=== PATIENT | male | born 1960 | race Caucasian/White ===

== ENCOUNTER 2017-12-07 22:47 | Emergency (ER) | payer SELFPAY ==
[~2017-12-07] VITALS: Ht 177.8 cm; Wt 67.0 kg
[~2017-12-07 22:47] MED LIST: IBUP800T23 PO
[2017-12-07 22:49] VITALS: BP 151/70; PULSE 97; RESP 20; TEMP 97.4; O2SAT 100
--- NOTE | 2017-12-07 23:35 | PD ---
Physical Exam Date Seen by Provider: December 07, 2017 Time Seen by Provider: 23:34 Narrative For full history and physical examination please see previous providers note. I was asked to perform an I&D to patient's right forearm abscess. Data Data Last Documented VS Vital Signs Date Time Temp Pulse Resp B/P (MAP) Pulse Ox O2 Delivery O2 Flow Rate FiO2 12/07/17 22:49 97.4 97 20 151/70 (97) 100 MDM Medical Record Reviewed: Yes Supervised Visit with KASHIF: Yes Procedures Procedure Narrative After the risks and benefits were discussed the following procedure was performed: INCISION AND DRAINAGE OF ABSCESS: The area was prepped and was sterilely draped. A subcutaneous wheal of 1 % Xylocaine with a total number 2 mL was used to anesthetize the area. The area was properly anesthetized. A number 11 scalpel was used to make a 1 -cm incision across the area of the abscess. Cultures were obtained. The abscess was drained an irrigated with normal saline. Quarter inch iodoform packing was placed in the wound. Sterile dressing applied. Patient advised to have packing removed in two days. Scripts No Active Prescriptions or Reported Livia Maldonado December 07, 2017 23:35
[2017-12-08] MEDS ORDERED: CLIN150C14 PO (00:22)
--- NOTE | 2017-12-08 00:23 | PD ---
HPI Chief Complaint: Skin Problem Time Seen by Provider: 00:20 Travel History International Travel<30 days: No Contact w/Intl Traveler<30days: No Traveled to known affect area: No History of Present Illness HPI 57-year-old male presents to the emergency department for complaint of swelling and redness to the right forearm. Patient admits to injecting IV cocaine. Patient is a no fever chills nausea vomiting ascending erythema or axillary lymphadenopathy. Patient is not diabetic. Patient is unable to identify exacerbating or alleviating factors. Patient has taken no medications for symptom relief such as ibuprofen or acetaminophen. Patient did take leftover amoxicillin given to him by a friend. PFSH Past Medical History AAA: No ADD: No ADHD: No Asthma: No Atrial Fibrillation: No Autoimmune Disease: No Blood Disorders: No Bipolar Disorder: No Depression: No Heart Rhythm Problems: No Cardiomyopathy: No Cardiovascular Problems: No Cerebral Palsy: No High Cholesterol: No Chemotherapy: No Chest Pain: No Congestive Heart Failure: No Cirrhosis: No COPD: No Cerebrovascular Accident: No Coronary Artery Disease: No Cystic Fibrosis: No Dementia: No Developmental Delay: No Diabetes: No Dialysis: No Diminished Hearing: No Diverticulitis: No Endocrine: No Gastrointestinal Disorders: No Genetic Disorder: No GERD: No Genitourinary: No Headaches: No Hepatitis: No Hypertension: No Immune Disorder: No Musculoskeletal: No Neurologic: No Psychiatric: Yes Reproductive: No Pancreatitis: No Radiation Therapy: No Renal Failure: No Schizophrenia: No Seizures: No Sickle Cell Disease: No Thyroid Disease: No Ulcer: No Tetanus Vaccination: < 5 Years Influenza Vaccination: No Past Surgical History Abdominal Surgery: No AICD: No Cardiac Surgery: No Ear Surgery: No Endocrine Surgery: No Eye Surgery: No Genitourinary Surgery: No Insulin Pump: No Neurologic Surgery: No Oral Surgery: No Thoracic Surgery: No Family History Family Hypercholesterolemia: No Social History Alcohol Use: Yes (5 liq drinks today) Tobacco Use: Yes (1ppd) Substance Use: No Allergies-Medications (Allergen,Severity, Reaction): Coded Allergies: No Known Allergies (Unverified Adverse Reaction, Unknown, 12/07/17) Reported Meds & Prescriptions Reported Meds & Active Scripts Active Clindamycin (Clindamycin HCl) 150 Mg Cap 300 Mg PO Q6H 7 Days Review of Systems Except as stated in HPI: all other systems reviewed are Neg General / Constitutional: No: Fever, Chills HENT: No: Congestion Cardiovascular: No: Chest Pain or Discomfort, Palpitations, Syncope Respiratory: No: Shortness of Breath Gastrointestinal: No: Abdominal Pain Genitourinary: No: Flank Pain Musculoskeletal: Positive: Edema, Pain (Isolated right forearm pain with redness swelling and tenderness no back pain no lower extremity numbness tingling or weakness or cramping), No: Myalgias, Arthralgias, Weakness, Cramping Skin: Positive Rash (Proximal right forearm proximal right forearm), Positive Lumps Neurologic: No: Weakness (Proximal right forearm), Dizziness, Syncope Psychiatric: No: Anxiety Hematologic/Lymphatic: No: Lymph Node Enlargement Physical Exam Narrative GENERAL: Well-developed well-nourished male no acute distress no respiratory SKIN: Warm and dry. HEAD: Normocephalic. EYES: No scleral icterus. No injection or drainage. NECK: Supple, trachea midline. No JVD or lymphadenopathy. CARDIOVASCULAR: Regular rate and rhythm without murmurs, gallops, or rubs. No murmur RESPIRATORY: Breath sounds equal bilaterally. No accessory muscle use. GASTROINTESTINAL: Abdomen soft, non-tender, nondistended. MUSCULOSKELETAL: No cyanosis, or edema. Attention right upper extremity area of marked induration erythema tenderness warmth with central pointing to the volar aspect of the proximal right forearm distal extremities neurovascular tendon intact proximally there is no ascending erythema or palpable axillary lymphadenopathy BACK: Nontender without obvious deformity. No CVA tenderness. Data Data Last Documented VS Vital Signs Date Time Temp Pulse Resp B/P (MAP) Pulse Ox O2 Delivery O2 Flow Rate FiO2 12/07/17 22:49 97.4 97 20 151/70 (97) 100 Orders Orders Wound Culture And Gram Stain (12/07/17 23:35) Ed Discharge Order (12/08/17 00:23) Clindamycin (Cleocin) (12/08/17 00:30) MDM Medical Decision Making Medical Screen Exam Complete: Yes Emergency Medical Condition: Yes Medical Record Reviewed: Yes Differential Diagnosis Abscess cellulitis retained foreign body Narrative Course Patient with abscess of the forearm secondary to IV drug use; I&D to be performed Please refer to mid-level provider's dictation Patient given first dose of clindamycin Patient is stable for outpatient management Diagnosis Primary Impression: Abscess of right forearm Additional Impression: Encounter for incision and drainage procedure Referrals: Primary Care Physician 2 days Patient Instructions: General Instructions Additional Instructions: Follow-up with primary care provider or emergency department for 2 day wound check and packing removal Complete course of antibiotic as prescribed Return to the emergency department for any concerns or change in condition Take acetaminophen or ibuprofen per package directions for pain or for fever 100.4F or greater Discontinue cocaine use May apply warm compresses to affected area Med/Other Pt SpecificInfo: Prescription(s) given Scripts Clindamycin (Clindamycin) 150 Mg Cap 300 MG PO Q6H for Infection for 7 Days, #56 CAP 0 Refills Prov: Indira Marie MD 12/08/17 Disposition: 01 DISCHARGE HOME Condition: Stable Indira Marie MD December 08, 2017 00:23
[2017-12-08] MEDS ORDERED: CLINDAMYCIN 150 MG CAP PO ONE (00:30)
== END 2017-12-08 00:30 | disposition home or self-care (01) ==
LOC: NEPC 22:47
DX: L02.413 Cutaneous abscess of right upper limb (principal); F17.200 Nicotine dependence, unspecified, uncomplicated
CPT/HCPCS: 10061; 86403; 87070; 87186; 87205

== ENCOUNTER 2017-12-11 13:05 | Emergency (ER) | payer SELFPAY ==
[~2017-12-11] VITALS: Ht 182.9 cm; Wt 69.0 kg
[~2017-12-11 13:05] MED LIST changes: +CLIN150C14 PO; -IBUP800T23 PO
[2017-12-11 13:18] VITALS: BP 133/75; PULSE 82; RESP 16; TEMP 97.9; O2SAT 98
[2017-12-11] MEDS ORDERED: DICL75TA PO (13:49)
[2017-12-11] MEDS ORDERED: BACT800T5 PO (13:49)
[2017-12-11] MEDS ORDERED: CEPH-460 PO (13:49)
[2017-12-11] MEDS ORDERED: VANCOMYCIN INJ 1,000 MG in SODIUM CHLOR 0.9% 250 ML INJ 250 ML IV ONE (14:00)
--- NOTE | 2017-12-11 14:09 | PD ---
HPI Chief Complaint: Wound/Suture/Staple Re-Check Time Seen by Provider: 13:40 Travel History International Travel<30 days: No Contact w/Intl Traveler<30days: No Traveled to known affect area: No History of Present Illness HPI 57-year-old male that presents to the ED for evaluation of wound recheck. Patient had an abscess incised and drained here earlier this week. Per patient he was given clindamycin while he could not afford the medication because he was too expensive. He comes here for a recheck. Comes here with a friend who was able to transport him as apparently patient does not have any transportation. He does have a history of IV drug abuse and apparently injected cocaine were he had the abscess. For the most part he states that he is here for the packing removal and for antibiotics. Per patient he cannot afford them. He states that he has some discomfort on the area which is 3 out of 10. He denies any fevers chills or sweats. He has not changed the dressing since being here. No other medical issues. Allergy to under peroxide. Pain does not radiate. Denies any urinary or bowel movement issues. No other injuries. PFSH Past Medical History AAA: No ADD: No ADHD: No Asthma: No Atrial Fibrillation: No Autoimmune Disease: No Blood Disorders: No Bipolar Disorder: No Depression: No Heart Rhythm Problems: No Cardiomyopathy: No Cardiovascular Problems: No Cerebral Palsy: No High Cholesterol: No Chemotherapy: No Chest Pain: No Congestive Heart Failure: No Cirrhosis: No COPD: No Cerebrovascular Accident: No Coronary Artery Disease: No Cystic Fibrosis: No Dementia: No Developmental Delay: No Diabetes: No Dialysis: No Diminished Hearing: No Diverticulitis: No Endocrine: No Gastrointestinal Disorders: No Genetic Disorder: No GERD: No Genitourinary: No Headaches: No Hepatitis: No Hypertension: No Immune Disorder: No Musculoskeletal: No Neurologic: No Psychiatric: Yes Reproductive: No Pancreatitis: No Radiation Therapy: No Renal Failure: No Schizophrenia: No Seizures: No Sickle Cell Disease: No Thyroid Disease: No Ulcer: No Tetanus Vaccination: < 5 Years Influenza Vaccination: No Past Surgical History Abdominal Surgery: No AICD: No Cardiac Surgery: No Ear Surgery: No Endocrine Surgery: No Eye Surgery: No Genitourinary Surgery: No Insulin Pump: No Neurologic Surgery: No Oral Surgery: No Thoracic Surgery: No Family History Family Hypercholesterolemia: No Social History Alcohol Use: Yes (5 liq drinks today) Tobacco Use: Yes (1ppd) Substance Use: No Allergies-Medications (Allergen,Severity, Reaction): Coded Allergies: hydrogen peroxide (Verified Allergy, Mild, hives, 12/11/17) Reported Meds & Prescriptions Reported Meds & Active Scripts Active Diclofenac Sodium DR (Diclofenac Sodium) 75 Mg Tabdr 75 Mg PO BID PRN Keflex (Cephalexin) 500 Mg Cap 500 Mg PO Q8H 14 Days Bactrim DS (Sulfamethoxazole-Trimethoprim) 800-160 Mg Tab 1 Tab PO BID 14 Days Clindamycin (Clindamycin HCl) 150 Mg Cap 300 Mg PO Q6H 7 Days Review of Systems Except as stated in HPI: all other systems reviewed are Neg Physical Exam Narrative GENERAL: SKIN: Warm and dry. Patient has a healing abscess that is still draining some purulence on the right elbow area. Patient has what appears to be sterile pain riding on his skin that appears to the node where he had redness and this appears to have improved. No packing noted as packing was removed by ED nurse before I went into the room. No obvious lymphadenopathy. No other signs of acute disease. Patient able to move the arm fully. 2+ pulses bilaterally. Redness only to the area where the abscess was lanced and slightly warm to touch. HEAD: Atraumatic. Normocephalic. EYES: Pupils equal and round. No scleral icterus. No injection or drainage. ENT: No nasal bleeding or discharge. Mucous membranes pink and moist. Tongue is midline. No uvula deviation. NECK: Trachea midline. No JVD. CARDIOVASCULAR: Regular rate and rhythm. No murmurs, S3, S4. RESPIRATORY: No accessory muscle use. Clear to auscultation. Breath sounds equal bilaterally. GASTROINTESTINAL: Abdomen soft, non-tender, nondistended. Hepatic and splenic margins not palpable. MUSCULOSKELETAL: Extremities without clubbing, cyanosis, or edema. No obvious deformities. Full range of motion of the upper and lower extremities bilaterally. 2+ pulses bilaterally. NEUROLOGICAL: Awake and alert. No obvious cranial nerve deficits. Motor grossly within normal limits. Five out of 5 muscle strength in the arms and legs. Normal speech. PSYCHIATRIC: Appropriate mood and affect; insight and judgment normal. Data Data Last Documented VS Vital Signs Date Time Temp Pulse Resp B/P (MAP) Pulse Ox O2 Delivery O2 Flow Rate FiO2 5/31/18 13:31 76 16 12/11/17 13:18 97.9 133/75 (94) 98 Orders Orders Vancomycin Inj (Vancomycin Inj) (12/11/17 14:00) [facility] Medical Decision Making Medical Screen Exam Complete: Yes Emergency Medical Condition: Yes Medical Record Reviewed: Yes Differential Diagnosis Abscess versus cellulitis versus wound recheck Narrative Course 57-year-old male that presents to the ED for evaluation of abscess recheck. Patient was properly examined and was found to have signs and symptoms consistent with wound recheck. I did review the patient's medical record. Patient was here 4 days ago and apparently has not taken antibiotics but the wound itself appears to be better. He still has drainage from the abscess. He did grow MRSA which apparently is resistant to the clindamycin that he was prescribed so this wouldn't have helped anyways. At this time patient will be given an IV dose of vancomycin and given a prescription for Bactrim. Patient was given Diclofenac sodium for pain. Told to follow closely with PCP. See ED if worsening symptoms. Packing already had been removed by ED nurse before I went in the room when she was changing the dressing. Diagnosis Primary Impression: Abscess Patient Instructions: General Instructions Additional Instructions: Take medications as prescribed. Follow-up with PCP. See ED if worsening symptoms. Bactrim is free at [facility]. Rechecking 48 hours if no improvement at all. Med/Other Pt SpecificInfo: Prescription(s) given, Wound Care Scripts Diclofenac Sodium DR (Diclofenac Sodium DR) 75 Mg Tabdr 75 MG PO BID Y for PAIN SCALE 1 TO 10, #20 TAB 0 Refills Prov: Zach Briceño MD 12/11/17 Cephalexin (Keflex) 500 Mg Cap 500 MG PO Q8H for Infection for 14 Days, #42 CAP 0 Refills Prov: Zach Briceño MD 12/11/17 Sulfamethoxazole-Trimethoprim (Bactrim DS) 800-160 Mg Tab 1 TAB PO BID for Infection for 14 Days, #28 TAB 0 Refills Prov: Zach Briceño MD 12/11/17 Disposition: 01 DISCHARGE HOME Condition: Stable Wilmer Key December 11, 2017 14:08
[2017-12-11 15:25] VITALS: BP 124/77; TEMP 97.9
== END 2017-12-11 15:25 | disposition home or self-care (01) ==
LOC: NEPC 13:05
DX: L02.413 Cutaneous abscess of right upper limb (principal); F17.200 Nicotine dependence, unspecified, uncomplicated
CPT/HCPCS: 96365; 99284; J3370; J7050

== ENCOUNTER 2018-02-13 11:17 | Observation (INO) ==
--- NOTE | 2018-02-13 14:00 | ED ---
HPI General Chief Complaint: Respiratory Symptoms Stated Complaint: respiratory Time Seen by Provider: 02/13/18 13:27 History of Present Illness HPI Narrative: This patient complains of cough and congestion and wheezing and shortness of breath. Patient is a lifelong cigarette smoker who is homeless. He has been coughing up some phlegm. He denies fever or chest pain. He has no diagnosed cardiac or pulmonary disease. Symptom severity is moderate. No alleviating factors. No exacerbating factors. Duration is 3 days Related Data Home Medications Medication Instructions Recorded Confirmed No Known Home Medications 02/13/18 02/13/18 Allergies Allergy/AdvReac Type Severity Reaction Status Date / Time hydrogen peroxide Allergy Mild hives Verified 02/13/18 13:33 Review of Systems Except as stated in HPI: all other systems reviewed are negative [facility] Medical History Medical History Broken legs (Acute) Dislocated thumb (Acute) Social History Social History Substance History: Past History Second Hand Smoke Exposure: Yes Smoking Status: Current every day smoker Tobacco Type: Cigarettes How Often Do You Have a Drink Containing Alcohol: 2 to 3 times a week Recent Travel in [facility] within the Last 8 Weeks: No Recent Out of Country Travel within the Last 8 Weeks: No Immunization History Tetanus Immunization: Unsure Hx Influenza Vaccine This Season: No Exam Narrative Exam Narrative: GENERAL: Well-nourished, well-developed patient cough and congestion . SKIN: Focused skin assessment reveals no rash and nodules. Skin is Warm and dry. HEAD: Atraumatic. Normocephalic. EYES: Pupils equal and round. No scleral icterus. No injection or drainage. ENT: No nasal bleeding or discharge. Mucous membranes pink and moist. NECK: Trachea midline. No JVD. CARDIOVASCULAR: Regular rate and rhythm. No murmur appreciated. RESPIRATORY: No accessory muscle use. Some expiratory wheeze and diffuse rhonchi. Breath sounds equal bilaterally. GASTROINTESTINAL: Abdomen soft, non-tender, nondistended. Hepatic and splenic margins not palpable. MUSCULOSKELETAL: No obvious deformities. No clubbing. No cyanosis. No edema. NEUROLOGICAL: Awake and alert. No obvious cranial nerve deficits. Motor grossly within normal limits. Normal speech. PSYCHIATRIC: Appropriate mood and affect; insight and judgment poor. Course Initial Documented Vital Signs Temperature 98.3 F 02/13/18 11:19 Pulse Rate 115 H 02/13/18 11:19 Respiratory Rate 20 02/13/18 11:19 Blood Pressure 116/73 02/13/18 11:19 Pulse Oximetry 94 L 02/13/18 11:19 Last Documented Vital Signs Temperature 98.3 F 02/13/18 11:19 Pulse Rate 114 H 02/13/18 15:24 Respiratory Rate 22 02/13/18 15:24 Blood Pressure 123/80 02/13/18 15:24 Pulse Oximetry 95 02/13/18 15:24 Medical Decision Making MDM Narrative Medical decision making narrative: IV placed and labs sent. I gave him a series of 3 nebulizer treatments. I reviewed his EKG which shows sinus rhythm and no ST elevation I reviewed his chest x-ray which shows a sizable right lung consolidation consistent with pneumonia. It matches his dyspnea and cough. He is tachycardic and tachypneic. He would benefit from IV antibiotics and hospitalization. He is homeless and not like to antibiotics filled or medical care follow-up. He will be admitted for community acquired pneumonia. Call is been placed to the medical residents to discuss. Differential Diagnosis Differential Diagnosis: Pneumonia, bronchitis, URI, asthma, COPD Medical Records Medical records reviewed: Yes I reviewed the patient's medical records. Lab Data Lab results reviewed: Yes I reviewed the patient's lab results. Result diagrams: 02/13/18 14:03 02/13/18 14:03 Lab Results 02/13/18 02/13/18 02/13/18 Range/Units 14:03 14:03 14:03 WBC 10.0 (4.0-11.0) th/mm3 RBC 5.32 (4.50-5.90) mil/mm3 Hgb 15.8 (13.0-17.0) gm/dL Hct 47.9 (39.0-51.0) % MCV 89.9 (80.0-100.0) fL MCH 29.7 (27.0-34.0) pg MCHC 33.0 (32.0-36.0) % RDW 15.0 (11.6-17.2) % Plt Count 343 (150-450) th/mm3 MPV 7.0 (7.0-11.0) fL Neut % (Auto) 75.9 H (16.0-70.0) % Lymph % (Auto) 10.3 (9.0-44.0) % [place] % (Auto) 11.9 H (0.0-8.0) % Eos % (Auto) 1.0 (0.0-4.0) % Baso % (Auto) 0.9 (0.0-2.0) % Neut # (Auto) 7.6 (1.8-7.7) th/mm3 Lymph # (Auto) 1.0 (1.0-4.8) th/mm3 [place] # (Auto) 1.2 H (0.0-0.9) th/mm3 Eos # (Auto) 0.1 (0.0-0.4) th/mm3 Baso # (Auto) 0.1 (0.0-0.2) th/mm3 WBC Differential . Differential Comment Auto diff final Sodium 132 L (136-145) meq/L Potassium 3.8 (3.5-5.1) meq/L Chloride 97 L (98-107) meq/L Carbon Dioxide 27.7 (21.0-32.0) meq/L Anion Gap 7 (5-15) meq/L BUN 6 L (7-18) mg/dL Creatinine 1.01 (0.60-1.30) mg/dL Estimated GFR 76 L (>89) mL/min Random Glucose 69 L (74-106) mg/dL Calcium 8.5 (8.5-10.1) mg/dL Total Bilirubin 1.3 H (0.2-1.0) mg/dL AST 18 (15-37) U/L ALT 16 (12-78) U/L Alkaline Phosphatase 93 (45-117) U/L Troponin I Less than 0.02 L (0.02-0.05) ng/mL Total Protein 7.4 (6.4-8.2) g/dL Albumin 3.0 L (3.4-5.0) g/dL Imaging Data Radiologist's impression: Chest X-Ray 02/13/18 13:53 CONCLUSION: Densely consolidated area of infiltrate involving the right upper lobe. This would be concerning for a pneumonia. There are no previous examinations available for comparison. Discharge Plan Discharge Disposition Patient Disposition: 30 Still Patient Discharge Details Diagnosis: Community acquired pneumonia Physicians Team ED Provider: Aric Stoll Primary Care Provider: Primary Care Physici,Samantha Rxs /Orders / Referrals /Forms Prescriptions: No Action No Known Home Medications RF: 0 Discharge Interventions Interventions: Vital Signs Last Done: 02/13/18 15:24 Status ED Status: With Doctor
--- NOTE | 2018-02-13 14:17 | XR ---
EXAM DATE: 02/13/2018 2:06 PM EDT AGE/SEX: 58 years / Male INDICATIONS: Short of breath. CLINICAL DATA: This is the patient's initial encounter. Patient reports that signs and symptoms have been present for 3 days and indicates a pain score of 6/10. MEDICAL/SURGICAL HISTORY: . smokes None. COMPARISON: No prior exams available for comparison. FINDINGS: The heart is normal in size. The examination demonstrates a densely consolidated infiltrate involving the right upper lobe concerning for a pneumonia. The visualized bony structures are grossly intact. CONCLUSION: Densely consolidated area of infiltrate involving the right upper lobe. This would be concerning for a pneumonia. There are no previous examinations available for comparison. Electronically signed by: Christiano Tmolinson MD 02/13/2018 2:16 PM EDT
[2018-02-13 14:40] LABS: Baso # (Auto) 0.1 th/mm3 (0.0-0.2); Baso % (Auto) 0.9 % (0.0-2.0); Eos # (Auto) 0.1 th/mm3 (0.0-0.4); Hematocrit 47.9 % (39.0-51.0); Hemoglobin 15.8 gm/dL (13.0-17.0); Lymph % (Auto) 10.3 % (9.0-44.0); Mean Corpuscular Hemoglobin 29.7 pg (27.0-34.0); Mean Corpuscular Volume 89.9 fL (80.0-100.0); Mono # (Auto) 1.2 th/mm3 (0.0-0.9); Mono % (Auto) 11.9 % (0.0-8.0); Neut # (Auto) 7.6 th/mm3 (1.8-7.7); Neut % (Auto) 75.9 % (16.0-70.0); Platelet Count 343 th/mm3 (150-450); Red Blood Count 5.32 mil/mm3 (4.50-5.90)
[2018-02-13 14:56] LABS: Alanine Aminotransferase 16 U/L (12-78); Anion Gap 7 meq/L (5-15); Aspartate Aminotransferase 18 U/L (15-37); Blood Urea Nitrogen 6 mg/dL (7-18); Calcium 8.5 mg/dL (8.5-10.1); Carbon Dioxide 27.7 meq/L (21.0-32.0); Chloride 97 meq/L (98-107); Glomerular Filtration Rate 76 mL/min (>89); Glucose,Random 69 mg/dL (74-106); Potassium 3.8 meq/L (3.5-5.1); Sodium 132 meq/L (136-145)
[2018-02-13 14:58] LABS: Alkaline Phosphatase 93 U/L (45-117); Total Protein 7.4 g/dL (6.4-8.2)
[2018-02-13] MEDS ORDERED: Azithromycin Inj 500 MG in Sodium Chlor 0.9% Inj 250 ML IV.SIG ONE (17:04)
--- NOTE | 2018-02-13 17:52 | P.HPFP ---
History of Present Illness Primary Care Physician: No Primary Care Physician <Dominic Montero 02/14/18 20:08> No Primary Care Physician <Suze Hernandez 02/13/18 17:52> History of Present Illness: 58 year old male presents to the ED due to SOB that started 2 and a 1/2 days ago with associated R sided chest pain. PT was going to the library and suddenly felt SOB after walking for a long period of time. This seemed to happened in the past with walking very long distances but he has noticed that the shortness of breath has become worse in the past two days. The shortness of breath is now present at rest. He also has associated right- sided chest pain. Describes the pain as an achy stabbing pain with no radiation. Nothing seems to make the chest pain and shortness of breath better. Patient also has an associated cough that started today, nonproductive. Denies any fever but had associated chills over the past two days. No exposure to sick contacts. He also has had associated diarrhea since last night x5. Denies any blood in his stool. Denies any recent falls or trauma. SH: Patient lives in a car. No exposure to tuberculosis but has a friend who had MRSA infection. No exposure to people in long term, never been incarcerated. Sexually active with females, uses condoms. No Hx of STDs in the past. <Suze Hernandez 02/13/18 23:17> - Diagnosis (1) Sepsis (2) Community acquired pneumonia (3) Right-sided chest pain (4) Smoking (5) Nutrition, metabolism, and development symptoms (6) DVT prophylaxis <Dominic Montero 02/14/18 20:08> (1) Sepsis (2) Community acquired pneumonia (3) Right-sided chest pain (4) Nutrition, metabolism, and development symptoms (5) DVT prophylaxis <Suze Hernandez 02/13/18 23:17> Review of Systems Constitutional: Reports chills, Reports lack of energy, Denies fever(s), Denies headache(s) <Suze Hernandez 02/13/18 18:07> Eyes: Denies blurry vision <Suze Hernandez 02/13/18 18:07> Cardiovascular: Reports chest pain, Reports shortness of breath, Denies chest pain at rest, Denies fast heart rate, Denies rapid, pounding, or irregular heartbeat <Suze Hernandez 02/13/18 18:07> Comments: R sided, hurts with movement. SOB at rest <Suze Hernandez 02/13/18 18:07> Respiratory: Reports cough, Reports pain with cough, Reports shortness of breath with activity <Suze Hernandez 02/13/18 18:07> Comments: R sided chest <Suez Hernandez 02/13/18 18:07> Gastrointestinal: Reports change in stools, Denies abdominal pain, Denies black , tarry stools, Denies bright, red blood in stools <Suze Hernandez 02/13/18 18:07> Comments: diarrhea x5 yesterdya. No BM today. <Suze Hernandez 02/13/18 18:07> Psychiatric: Reports anxiety, Reports depression, Denies thoughts of hurting/ killing others, Denies thoughts of hurting/killing yourself <Suze Hernandez 02/13/18 18:07> PMFSH - History History Provided By: Patient <Suze Hernandez 02/13/18 17:52> - Medical History Medical History: Medical History (Last Updated 02/13/18 @ 11:23 by Lety Hogan) Broken legs Dislocated thumb <Dominic Montero 02/14/18 19:56> Medical History (Last Updated 02/13/18 @ 11:23 by Lety Hogan) Broken legs Dislocated thumb <Suze Hernandez 02/13/18 17:52> - Family History Family History: Family History (Last Updated 02/13/18 @ 18:10 by Suze Hernandez MD, R1) Mother COPD (chronic obstructive pulmonary disease) Myocardial disease Brother Diabetes Grandparent Myocardial disease <Dominic Montero 02/14/18 19:56> Family History (Last Updated 02/13/18 @ 18:10 by Suze Hernandez MD, R1) Mother COPD (chronic obstructive pulmonary disease) Myocardial disease Brother Diabetes Grandparent Myocardial disease <Suze Hernandez 02/13/18 18:12> - Tobacco History Second Hand Smoke Exposure: Yes <Suze Hernandez 02/13/18 17:52> Tobacco Use In Past 30 Days: Yes <Suze Hernandez 02/13/18 17:52> Smoking Status: Current every day smoker <Suze Hernandez 02/13/18 17:52> Tobacco Type: Cigarettes <Suze Hernandez 02/13/18 17:52> Packs Per Day: 1 <Suze Hernandez 02/13/18 18:12> Years Smoked: 30 <Suze Hernandez 02/13/18 18:12> - Alcohol History How Often Do You Have a Drink Containing Alcohol: 2 to 3 times a week <Suze Hernandez 02/13/18 17:52> - Substance Use History Substance History: Past History (marijuana, acid (30 years ago) crack ( 9 months ago), meth (8 months ago)) <Suze Hernandez 02/13/18 18:12> - Travel History Recent Travel in the [facility] Within the Last 8 Weeks: No <Suze Hernandez 17:52> Recent Travel Out of the Country Within the Last 8 Weeks: No <Suze Hernandez 02/13/18 17:52> - Immunization History Tetanus Immunization: <5 Years <Suze Hernandez 02/13/18 18:12> Tetanus Immunization Year if Known: 2015 <Suze Hernandez 02/13/18 18:12> Hx Influenza Vaccine This Season: No <Suze Hernandez 02/13/18 17:52> Medications and Allergies Allergies Allergy/AdvReac Type Severity Reaction Status Date / Time hydrogen peroxide Allergy Mild hives Verified 02/13/18 13:33 <Dominic Montero - 02/14/18 20:08> Home Medications Medication Instructions Recorded Confirmed Type No Known Home Medications 02/13/18 02/13/18 History <Dominic Montero 02/14/18 20:08> Active Medications: Active Medications Acetaminophen (Tylenol) 650 mg PO Q4H PRN PRN Reason: Temp > 100.4 Al Hydroxide/Mg Hydroxide (Milk Of Magnesia Liq) 30 ml PO Q12H PRN PRN Reason: Mild Constipation Albuterol (Duoneb Neb (Prn)) 1 ampul NEB Q4HR NEB PRN PRN Reason: SHORTNESS OF BREATH Bisacodyl (Dulcolax Supp) 10 mg RECTAL DAILY PRN PRN Reason: SEVERE CONSITIPATION Azithromycin 500 mg/ Sodium (Chloride) 250 mls @ 250 mls/hr IV.SIG Q24H [facility] Last Infusion: 02/14/18 17:50 Dose: Infused Ceftriaxone Sodium 1,000 mg/ (Sodium Chloride) 100 mls @ 200 mls/hr IV.SIG Q24H [facility] Last Infusion: 02/14/18 17:49 Dose: Infused Lactulose (Lactulose Liq) 30 ml PO DAILY PRN PRN Reason: SEVERE CONSITIPATION Ondansetron HCl (Zofran Inj) 4 mg IV.PUSH Q6H PRN PRN Reason: NAUSEA OR VOMITING Prednisone (Deltasone) 50 mg PO DAILY [facility] Last Admin: 02/14/18 11:34 Dose: 50 mg Sennosides (Senokot) 17.2 mg PO Q12H PRN PRN Reason: Moderate Constipation Temazepam (Restoril) 15 mg PO HS PRN PRN Reason: INSOMNIA <Dominic Montero - 02/14/18 20:08> Active Medications Azithromycin 500 mg/ Sodium (Chloride) 250 mls @ 250 mls/hr IV.SIG ONCE ONE Stop: 02/13/18 18:03 <Suze Hernandez - 02/13/18 17:52> Exam Vital signs: Vital Signs 02/13/18 20:00 02/13/18 23:45 02/14/18 00:00 Temperature 99.4 F 98.9 F Pulse Rate 101 H 104 H 109 H Respiratory Rate 17 17 Blood Pressure 127/69 89/54 L Pulse Oximetry 96 94 L 02/14/18 01:30 02/14/18 03:45 02/14/18 04:00 Temperature 99.0 F Pulse Rate 105 H 93 H Respiratory Rate 17 Blood Pressure 108/63 100/56 L Pulse Oximetry 90 L 02/14/18 06:17 02/14/18 08:00 02/14/18 12:00 Temperature 100.1 F H 97.2 F L Pulse Rate 97 H 89 Respiratory Rate 16 20 20 Blood Pressure 102/60 116/74 Pulse Oximetry 96 92 L 02/14/18 16:00 Temperature 98.1 F Pulse Rate 82 Respiratory Rate 20 Blood Pressure 112/67 Pulse Oximetry 92 L Intake & Output 02/14/18 02/14/18 02/15/18 06:59 18:59 06:59 Intake Total 240 / 240 830 / 830 Balance 240 / 240 830 / 830 Weight 68.03 kg Intake: IV 350 / 350 Azithromycin Inj 500 MG In NS 250 / 250 Inj 250 ML @ 250 mls/hr IV.SIG Q24H [facility] Rx#:[id number] Rocephin Inj 1,000 MG In NS Inj 100 / 100 100 ML @ 200 mls/hr IV.SIG Q24H [facility] Rx#:[id number] Oral 240 / 240 480 / 480 Other: # Voids 1 500 # Bowel Movements 1 1 <Dominic Montero - 02/14/18 20:08> Vital Signs 02/13/18 11:19 02/13/18 11:24 02/13/18 14:06 Temperature 98.3 F Pulse Rate 115 H 100 H 103 H Respiratory Rate 20 30 H 27 H Blood Pressure 116/73 131/75 Pulse Oximetry 94 L 95 02/13/18 14:07 02/13/18 15:24 Temperature Pulse Rate 114 H Respiratory Rate 22 Blood Pressure 123/80 Pulse Oximetry 95 95 Intake & Output 02/12/18 02/13/18 02/13/18 18:59 06:59 18:59 Weight 68.039 kg <Suze Hernandez - 02/13/18 17:52> Narrative: Elderly man, laying comfortably in bed, in no acute distress. <Suze Hernandez - 02/13/18 23:12> - Routine HEENT Exam Head: Present: normocephalic, atraumatic <Suze Hernandez - 02/13/18 23:12> - Routine Chest/Breast/Axilla Exam Chest wall: Absent: tenderness (No chest wall tenderness. No parasternal tenderness appreciated on palpation.) <Suze Hernandez - 02/13/18 23:18> - Routine Respiratory Exam Present: decreased breath sounds (In the right middle lobe.), crackles (At the bases bilaterally.) <Suze Hernandez 02/13/18 20:57> - Routine Cardiovascular Exam Present: RRR, S1, S2. Absent: murmur <Suze Hernandez 02/13/18 20:57> - Routine Abdominal Exam Present: soft, normoactive bowel sounds. Absent: tenderness <Suze Hernandez 02/13/18 20:57> - Routine Extremities Exam Present: full ROM, pulses intact, tenderness. Absent: edema <Suze Hernandez 02/13/18 20:57> Comments: Tender to palpation on the right lower extremity near the medial malleolus. Slight abrasions are seen surrounding the area. It is warm to the touch. <Suze Hernandez 02/13/18 20:57> - Routine Neurological Exam Present: alert, oriented X3 <Suze Hernandez 02/13/18 20:57> Results - Labs Result diagrams: 02/14/18 06:50 02/14/18 06:50 <KylahDominic - 02/14/18 20:08> Abnormal lab results 02/14/18 02/14/18 Range/Units 06:50 06:50 WBC 13.4 H (4.0-11.0) th/mm3 MPV 6.9 L (7.0-11.0) fL Neut % (Auto) 81.5 H (16.0-70.0) % Neut # (Auto) 10.9 H (1.8-7.7) th/mm3 [place] # (Auto) 1.0 H (0.0-0.9) th/mm3 Sodium 133 L (136-145) meq/L Calcium 8.4 L (8.5-10.1) mg/dL Troponin I Less than 0.02 L (0.02-0.05) ng/mL Albumin 2.4 L D (3.4-5.0) g/dL Short CBC 02/14/18 Range/Units 06:50 WBC 13.4 H (4.0-11.0) th/mm3 Hgb 14.8 (13.0-17.0) gm/dL Hct 44.2 (39.0-51.0) % Plt Count 260 (150-450) th/mm3 BMP 02/14/18 06:50 Sodium 133 L Potassium 3.6 Chloride 99 Carbon Dioxide 23.6 BUN 9 Creatinine 0.88 Calcium 8.4 L Cardiac Enzymes 02/14/18 Range/Units 06:50 Troponin I Less than 0.02 L (0.02-0.05) ng/mL Liver Function 02/14/18 Range/Units 06:50 Total Bilirubin 1.0 (0.2-1.0) mg/dL AST 16 (15-37) U/L ALT 12 (12-78) U/L Alkaline Phosphatase 84 (45-117) U/L Albumin 2.4 L D (3.4-5.0) g/dL <Dominic Montero - 02/14/18 20:08> Abnormal lab results 02/13/18 02/13/18 02/13/18 Range/Units 14:03 14:03 14:03 Neut % (Auto) 75.9 H (16.0-70.0) % [place] % (Auto) 11.9 H (0.0-8.0) % [place] # (Auto) 1.2 H (0.0-0.9) th/mm3 Sodium 132 L (136-145) meq/L Chloride 97 L (98-107) meq/L BUN 6 L (7-18) mg/dL Estimated GFR 76 L (>89) mL/min Random Glucose 69 L (74-106) mg/dL Total Bilirubin 1.3 H (0.2-1.0) mg/dL Troponin I Less than 0.02 L (0.02-0.05) ng/mL Albumin 3.0 L (3.4-5.0) g/dL Short CBC 02/13/18 Range/Units 14:03 WBC 10.0 (4.0-11.0) th/mm3 Hgb 15.8 (13.0-17.0) gm/dL Hct 47.9 (39.0-51.0) % Plt Count 343 (150-450) th/mm3 BMP 02/13/18 14:03 Sodium 132 L Potassium 3.8 Chloride 97 L Carbon Dioxide 27.7 BUN 6 L Creatinine 1.01 Calcium 8.5 Cardiac Enzymes 02/13/18 Range/Units 14:03 Troponin I Less than 0.02 L (0.02-0.05) ng/mL Liver Function 02/13/18 Range/Units 14:03 Total Bilirubin 1.3 H (0.2-1.0) mg/dL AST 18 (15-37) U/L ALT 16 (12-78) U/L Alkaline Phosphatase 93 (45-117) U/L Albumin 3.0 L (3.4-5.0) g/dL <Suze Hernandez - 02/13/18 17:52> - Imaging Impressions Chest X-Ray 02/13/18 13:53 CONCLUSION: Densely consolidated area of infiltrate involving the right upper lobe. This would be concerning for a pneumonia. There are no previous examinations available for comparison. <Suze Hernandez - 02/13/18 17:52> Caprini VTE Risk Assessment Caprini VTE Risk Assessment: No/Low Risk (score <= 1) <Suze Hernandez - 20:57> Caprini Risk Assessment Model: Point Value = 1 Point Value = 2 Point Value = 3 Point Value = 5 Age 41-60 Minor surgery BMI > 25 kg/m2 Swollen legs Varicose veins or History of unexplained or recurrent spontaneous Oral contraceptives or hormone replacement Sepsis (< 1 month) Serious lung disease, including pneumonia (< 1 month) Abnormal pulmonary function Acute myocardial infarction Congestive heart failure (< 1 month) History of inflammatory bowel disease Medical patient at bed rest Age 61-74 Arthroscopic surgery Major open surgery (> 45 min) Laparoscopic surgery (> 45 min) Malignancy Confined to bed (> 72 hours) Immobilizing plaster cast Central venous access Age >= 75 History of VTE Family history of VTE Factor V Leiden Prothrombin [id number] Lupus anticoagulant Anticardiolipin antibodies Elevated serum homocysteine Heparin-induced thrombocytopenia Other congenital or acquired thrombophilia Stroke (< 1 month) Elective arthroplasty Hip, pelvis, or leg fracture Acute spinal cord injury (< 1 month) <Dominic Montero - 02/14/18 20:08> Point Value = 1 Point Value = 2 Point Value = 3 Point Value = 5 Age 41-60 Minor surgery BMI > 25 kg/m2 Swollen legs Varicose veins or History of unexplained or recurrent spontaneous Oral contraceptives or hormone replacement Sepsis (< 1 month) Serious lung disease, including pneumonia (< 1 month) Abnormal pulmonary function Acute myocardial infarction Congestive heart failure (< 1 month) History of inflammatory bowel disease Medical patient at bed rest Age 61-74 Arthroscopic surgery Major open surgery (> 45 min) Laparoscopic surgery (> 45 min) Malignancy Confined to bed (> 72 hours) Immobilizing plaster cast Central venous access Age >= 75 History of VTE Family history of VTE Factor V Leiden Prothrombin [id number] Lupus anticoagulant Anticardiolipin antibodies Elevated serum homocysteine Heparin-induced thrombocytopenia Other congenital or acquired thrombophilia Stroke (< 1 month) Elective arthroplasty Hip, pelvis, or leg fracture Acute spinal cord injury (< 1 month) <Suze Hernandez - 02/13/18 17:52> Prophylaxis Regimen: Total Risk Factor Score Risk Level Prophylaxis Regimen 0-1 Low Early ambulation 2 Moderate Order ONE of the following: *Sequential Compression Device (SCD) *Heparin 5000 units SQ BID 3-4 Higher Order ONE of the following medications: *Heparin 5000 units SQ TID *Enoxaparin/Lovenox 40 mg SQ daily (WT < 150 kg, CrCl > 30 mL/min) *Enoxaparin/Lovenox 30 mg SQ daily (WT < 150 kg, CrCl > 10-29 mL/min) *Enoxaparin/Lovenox 30 mg SQ BID (WT < 150 kg, CrCl > 30 mL/min) AND/OR *Sequential Compression Device (SCD) 5 or more Highest Order ONE of the following medications: *Heparin 5000 units SQ TID (Preferred with Epidurals) *Enoxaparin/Lovenox 40 mg SQ daily (WT < 150 kg, CrCl > 30 mL/min) *Enoxaparin/Lovenox 30 mg SQ daily (WT < 150 kg, CrCl > 10-29 mL/min) *Enoxaparin/Lovenox 30 mg SQ BID (WT < 150 kg, CrCl > 30 mL/min) AND *Sequential Compression Device (SCD) <Dominic Montero - 02/14/18 20:08> Total Risk Factor Score Risk Level Prophylaxis Regimen 0-1 Low Early ambulation 2 Moderate Order ONE of the following: *Sequential Compression Device (SCD) *Heparin 5000 units SQ BID 3-4 Higher Order ONE of the following medications: *Heparin 5000 units SQ TID *Enoxaparin/Lovenox 40 mg SQ daily (WT < 150 kg, CrCl > 30 mL/min) *Enoxaparin/Lovenox 30 mg SQ daily (WT < 150 kg, CrCl > 10-29 mL/min) *Enoxaparin/Lovenox 30 mg SQ BID (WT < 150 kg, CrCl > 30 mL/min) AND/OR *Sequential Compression Device (SCD) 5 or more Highest Order ONE of the following medications: *Heparin 5000 units SQ TID (Preferred with Epidurals) *Enoxaparin/Lovenox 40 mg SQ daily (WT < 150 kg, CrCl > 30 mL/min) *Enoxaparin/Lovenox 30 mg SQ daily (WT < 150 kg, CrCl > 10-29 mL/min) *Enoxaparin/Lovenox 30 mg SQ BID (WT < 150 kg, CrCl > 30 mL/min) AND *Sequential Compression Device (SCD) <Suze Hernandez - 02/13/18 17:52> Assessment and Plan - Assessment (1) Sepsis Code(s): A41.9 - Sepsis, unspecified organism Status: Acute (2) Community acquired pneumonia Code(s): J18.9 - Pneumonia, unspecified organism Status: Acute (3) Right-sided chest pain Code(s): R07.9 - Chest pain, unspecified Status: Acute (4) Smoking Code(s): F17.200 - Nicotine dependence, unspecified, uncomplicated Status: Acute (5) Nutrition, metabolism, and development symptoms Code(s): R63.8 - Other symptoms and signs concerning food and fluid intake Status: Acute (6) DVT prophylaxis Status: Acute <KylahDominic - 02/14/18 20:08> (1) Sepsis Code(s): A41.9 - Sepsis, unspecified organism Status: Acute Plan: Patient was tachypneic: 27, tachycardic: 105, with identified source of infection on chest x-ray with possible consolidation is likely pneumonia. Meets sepsis criteria. On Rocephin and azithromycin to cover gram positives, gram negatives and atypicals. Chest x-ray : Densely consolidated area of infiltrate involving the right upper lobe. This would be concerning for a pneumonia. Albuterol as needed for shortness of breath. Patient is currently on 1 L O2 nasal cannula. Wean as tolerated. Follow-up CBC in a.m. Follow-up CMP in a.m. Follow-up EKG. Follow-up pneumococcal and Legionella antigen. Follow-up sputum culture. (2) Community acquired pneumonia Code(s): J18.9 - Pneumonia, unspecified organism Status: Acute Plan: Patient presents to ED with shortness of breath on exertion and associated nonproductive cough. No past hospital visits the past 6 months. No recent exposure to tuberculosis, or prisons. Consolidation in right middle lobe appreciated on chest x-ray. Most likely pneumonia. White blood cell count on admission 10.0. With high neutrophil predominant at 75.9. Continue to follow in a.m. Patient started on Rocephin and azithromycin. Patient on 1 L nasal cannula O2. Wean as tolerated. Continue to monitor vital signs every 4. (3) Right-sided chest pain Code(s): R07.9 - Chest pain, unspecified Status: Acute Plan: Patient complains of right-sided chest pain exacerbated with movement. Chest wall not tender to palpation. No parasternal tenderness. EKG shows prolonged [place] interval. Possibly right atrial dilation (per medical team read). Chest x-ray negative. Possibly due to to excessive coughing. Troponin ordered. Follow-up. Tylenol as needed for pain. (4) Nutrition, metabolism, and development symptoms Code(s): R63.8 - Other symptoms and signs concerning food and fluid intake Status: Acute Plan: Fluids: Patient is eating p.o. Electrolytes:Monitor and replete as needed. Diet: Regular diet. (5) DVT prophylaxis Status: Acute Plan: SCDs only <Suze Hernandez - 02/13/18 23:17> <Suze Hernandez - Last Filed: 02/13/18 23:17> (2) Community acquired pneumonia Qualifiers: Laterality: right Lung location: upper lobe of lung Qualified Code(s): J18.1 - Lobar pneumonia, unspecified organism <Dominic Montero - Last Filed: 02/14/18 20:08> (2) Community acquired pneumonia Qualifiers: Laterality: right Lung location: upper lobe of lung Qualified Code(s): J18.1 - Lobar pneumonia, unspecified organism <Suze Hernandez - Last Filed: 02/13/18 23:17> (2) Community acquired pneumonia Qualifiers: Laterality: right Lung location: upper lobe of lung Qualified Code(s): J18.1 - Lobar pneumonia, unspecified organism <Dominic Montero - Last Filed: 02/14/18 20:08> (2) Community acquired pneumonia Qualifiers: Laterality: right Lung location: upper lobe of lung Qualified Code(s): J18.1 - Lobar pneumonia, unspecified organism
[2018-02-13] MEDS ORDERED: Temazepam 15 MG Capsule PO PRN (18:24)
[2018-02-13] MEDS ORDERED: Acetaminophen 325 MG Tablet PO PRN (18:24)
[2018-02-13] MEDS ORDERED: Bisacodyl 10 MG Supp RECTAL PRN (18:24)
[2018-02-14 07:17] LABS: Baso # (Auto) 0.1 th/mm3 (0.0-0.2); Baso % (Auto) 0.4 % (0.0-2.0); Eos # (Auto) 0.1 th/mm3 (0.0-0.4); Hematocrit 44.2 % (39.0-51.0); Hemoglobin 14.8 gm/dL (13.0-17.0); Lymph # (Auto) 1.3 th/mm3 (1.0-4.8); Lymph % (Auto) 9.7 % (9.0-44.0); Mean Corpuscular HGB Conc 33.6 % (32.0-36.0); Mean Corpuscular Hemoglobin 30.2 pg (27.0-34.0); Mean Platelet Volume 6.9 fL (7.0-11.0); Mono % (Auto) 7.4 % (0.0-8.0); Neut # (Auto) 10.9 th/mm3 (1.8-7.7); Neut % (Auto) 81.5 % (16.0-70.0); Platelet Count 260 th/mm3 (150-450); Red Blood Count 4.91 mil/mm3 (4.50-5.90); White Blood Count 13.4 th/mm3 (4.0-11.0)
[2018-02-14 07:48] LABS: Alanine Aminotransferase 12 U/L (12-78); Albumin 2.4 g/dL (3.4-5.0); Alkaline Phosphatase 84 U/L (45-117); Anion Gap 10 meq/L (5-15); Aspartate Aminotransferase 16 U/L (15-37); Blood Urea Nitrogen 9 mg/dL (7-18); Calcium 8.4 mg/dL (8.5-10.1); Carbon Dioxide 23.6 meq/L (21.0-32.0); Chloride 99 meq/L (98-107); Glomerular Filtration Rate 89 mL/min (>89); Glucose,Random 92 mg/dL (74-106); Potassium 3.6 meq/L (3.5-5.1); Sodium 133 meq/L (136-145); Total Protein 6.5 g/dL (6.4-8.2)
--- NOTE | 2018-02-14 10:47 | P.PNFP ---
Subjective Interval history: Patient seen and examined this morning. No acute events overnight. Patient reports continued cough and right-sided chest pain this morning. Denies any fever chills. Breathing stable. No abdominal pain, leg pain. <MarcellapeeweeTruman Cornejo - 02/14/18 10:46> Results - Labs Result diagrams: 02/14/18 06:50 02/14/18 06:50 <Dominic Montero - 02/14/18 19:59> Abnormal lab results 02/14/18 02/14/18 Range/Units 06:50 06:50 WBC 13.4 H (4.0-11.0) th/mm3 MPV 6.9 L (7.0-11.0) fL Neut % (Auto) 81.5 H (16.0-70.0) % Neut # (Auto) 10.9 H (1.8-7.7) th/mm3 [place] # (Auto) 1.0 H (0.0-0.9) th/mm3 Sodium 133 L (136-145) meq/L Calcium 8.4 L (8.5-10.1) mg/dL Troponin I Less than 0.02 L (0.02-0.05) ng/mL Albumin 2.4 L D (3.4-5.0) g/dL Short CBC 02/14/18 Range/Units 06:50 WBC 13.4 H (4.0-11.0) th/mm3 Hgb 14.8 (13.0-17.0) gm/dL Hct 44.2 (39.0-51.0) % Plt Count 260 (150-450) th/mm3 BMP 02/14/18 06:50 Sodium 133 L Potassium 3.6 Chloride 99 Carbon Dioxide 23.6 BUN 9 Creatinine 0.88 Calcium 8.4 L Cardiac Enzymes 02/14/18 Range/Units 06:50 Troponin I Less than 0.02 L (0.02-0.05) ng/mL Liver Function 02/14/18 Range/Units 06:50 Total Bilirubin 1.0 (0.2-1.0) mg/dL AST 16 (15-37) U/L ALT 12 (12-78) U/L Alkaline Phosphatase 84 (45-117) U/L Albumin 2.4 L D (3.4-5.0) g/dL <Dominic Montero - 02/14/18 19:59> Abnormal lab results 02/13/18 02/13/18 02/13/18 Range/Units 14:03 14:03 14:03 WBC (4.0-11.0) th/mm3 MPV (7.0-11.0) fL Neut % (Auto) 75.9 H (16.0-70.0) % [place] % (Auto) 11.9 H (0.0-8.0) % Neut # (Auto) (1.8-7.7) th/mm3 [place] # (Auto) 1.2 H (0.0-0.9) th/mm3 Sodium 132 L (136-145) meq/L Chloride 97 L (98-107) meq/L BUN 6 L (7-18) mg/dL Estimated GFR 76 L (>89) mL/min Random Glucose 69 L (74-106) mg/dL Calcium (8.5-10.1) mg/dL Total Bilirubin 1.3 H (0.2-1.0) mg/dL Troponin I Less than 0.02 L (0.02-0.05) ng/mL Albumin 3.0 L (3.4-5.0) g/dL 02/14/18 02/14/18 Range/Units 06:50 06:50 WBC 13.4 H (4.0-11.0) th/mm3 MPV 6.9 L (7.0-11.0) fL Neut % (Auto) 81.5 H (16.0-70.0) % [place] % (Auto) (0.0-8.0) % Neut # (Auto) 10.9 H (1.8-7.7) th/mm3 [place] # (Auto) 1.0 H (0.0-0.9) th/mm3 Sodium 133 L (136-145) meq/L Chloride (98-107) meq/L BUN (7-18) mg/dL Estimated GFR (>89) mL/min Random Glucose (74-106) mg/dL Calcium 8.4 L (8.5-10.1) mg/dL Total Bilirubin (0.2-1.0) mg/dL Troponin I Less than 0.02 L (0.02-0.05) ng/mL Albumin 2.4 L D (3.4-5.0) g/dL Short CBC 02/13/18 02/14/18 Range/Units 14:03 06:50 WBC 10.0 13.4 H (4.0-11.0) th/mm3 Hgb 15.8 14.8 (13.0-17.0) gm/dL Hct 47.9 44.2 (39.0-51.0) % Plt Count 343 260 (150-450) th/mm3 BMP 02/13/18 02/14/18 14:03 06:50 Sodium 132 L 133 L Potassium 3.8 3.6 Chloride 97 L 99 Carbon Dioxide 27.7 23.6 BUN 6 L 9 Creatinine 1.01 0.88 Calcium 8.5 8.4 L Cardiac Enzymes 02/13/18 02/14/18 Range/Units 14:03 06:50 Troponin I Less than 0.02 L Less than 0.02 L (0.02-0.05) ng/mL Liver Function 02/13/18 02/14/18 Range/Units 14:03 06:50 Total Bilirubin 1.3 H 1.0 (0.2-1.0) mg/dL AST 18 16 (15-37) U/L ALT 16 12 (12-78) U/L Alkaline Phosphatase 93 84 (45-117) U/L Albumin 3.0 L 2.4 L D (3.4-5.0) g/dL <Truman Reyes - 02/14/18 10:46> - Imaging Impressions Chest X-Ray 02/13/18 13:53 CONCLUSION: Densely consolidated area of infiltrate involving the right upper lobe. This would be concerning for a pneumonia. There are no previous examinations available for comparison. <Truman Reyes - 02/14/18 10:46> Physical Exam Vital signs: Vital Signs 02/13/18 20:00 02/13/18 23:45 02/14/18 00:00 Temperature 99.4 F 98.9 F Pulse Rate 101 H 104 H 109 H Respiratory Rate 17 17 Blood Pressure 127/69 89/54 L Pulse Oximetry 96 94 L 02/14/18 01:30 02/14/18 03:45 02/14/18 04:00 Temperature 99.0 F Pulse Rate 105 H 93 H Respiratory Rate 17 Blood Pressure 108/63 100/56 L Pulse Oximetry 90 L 02/14/18 06:17 02/14/18 08:00 02/14/18 12:00 Temperature 100.1 F H 97.2 F L Pulse Rate 97 H 89 Respiratory Rate 16 20 20 Blood Pressure 102/60 116/74 Pulse Oximetry 96 92 L 02/14/18 16:00 Temperature 98.1 F Pulse Rate 82 Respiratory Rate 20 Blood Pressure 112/67 Pulse Oximetry 92 L Intake & Output 02/14/18 02/14/18 02/15/18 06:59 18:59 06:59 Intake Total 240 / 240 830 / 830 Balance 240 / 240 830 / 830 Weight 68.03 kg Intake: IV 350 / 350 Azithromycin Inj 500 MG In NS 250 / 250 Inj 250 ML @ 250 mls/hr IV.SIG Q24H ANA MARIA Rx#:[id number] Rocephin Inj 1,000 MG In NS Inj 100 / 100 100 ML @ 200 mls/hr IV.SIG Q24H ANA MARIA Rx#:[id number] Oral 240 / 240 480 / 480 Other: # Voids 1 500 # Bowel Movements 1 1 <Dominic Montero - 02/14/18 19:59> Vital Signs 02/13/18 11:19 02/13/18 11:24 02/13/18 13:54 Temperature 98.3 F Pulse Rate 115 H 100 H 105 H Respiratory Rate 20 30 H Blood Pressure 116/73 131/75 Pulse Oximetry 94 L 95 02/13/18 14:06 02/13/18 14:07 02/13/18 15:24 Temperature Pulse Rate 103 H 114 H Respiratory Rate 27 H 22 Blood Pressure 123/80 Pulse Oximetry 95 95 02/13/18 19:39 02/13/18 20:00 02/13/18 23:45 Temperature 99.4 F Pulse Rate 107 H 101 H 104 H Respiratory Rate 16 17 Blood Pressure 120/83 127/69 Pulse Oximetry 96 02/14/18 00:00 02/14/18 01:30 02/14/18 03:45 Temperature 98.9 F Pulse Rate 109 H 105 H Respiratory Rate 17 Blood Pressure 89/54 L 108/63 Pulse Oximetry 94 L 02/14/18 04:00 02/14/18 06:17 02/14/18 08:00 Temperature 99.0 F 100.1 F H Pulse Rate 93 H 91 H Respiratory Rate 17 16 20 Blood Pressure 100/56 L 102/60 Pulse Oximetry 90 L 96 Intake & Output 02/13/18 02/14/18 02/14/18 18:59 06:59 18:59 Intake Total 240 / 240 Balance 240 / 240 Weight 68.039 kg 68.03 kg Intake: Oral 240 / 240 Other: # Voids 1 # Bowel Movements 1 <Truman Reyes - 02/14/18 10:46> Narrative: GENERAL: lying in bed, NAD SKIN: Warm and dry. NECK: Trachea midline. No JVD. CARDIOVASCULAR: Regular rate and rhythm. RESPIRATORY: No accessory muscle use. Decreased breath sounds and coarse throughout GASTROINTESTINAL: Abdomen soft, non-tender, nondistended. Hepatic and splenic margins not palpable. MUSCULOSKELETAL: Extremities without clubbing, cyanosis, or edema. No obvious deformities. NEUROLOGICAL: Awake and alert. Normal speech. PSYCHIATRIC: Appropriate mood and affect; insight and judgment normal. <Truman Reyes - 02/14/18 10:46> Assessment and Plan - Assessment (1) Sepsis Code(s): A41.9 - Sepsis, unspecified organism Status: Acute (2) Community acquired pneumonia Code(s): J18.9 - Pneumonia, unspecified organism Status: Acute (3) Right-sided chest pain Code(s): R07.9 - Chest pain, unspecified Status: Acute (4) Smoking Code(s): F17.200 - Nicotine dependence, unspecified, uncomplicated Status: Acute (5) Nutrition, metabolism, and development symptoms Code(s): R63.8 - Other symptoms and signs concerning food and fluid intake Status: Acute (6) DVT prophylaxis Status: Acute <KylahDominic - 02/14/18 19:59> (1) Sepsis Code(s): A41.9 - Sepsis, unspecified organism Status: Acute Plan: Patient was tachypneic: 27, tachycardic: 105, with identified source of infection on chest x-ray with possible consolidation is likely pneumonia. Meets sepsis criteria on admission. On Rocephin and azithromycin to cover gram positives, gram negatives and atypicals. Chest x-ray : Densely consolidated area of infiltrate involving the right upper lobe. This would be concerning for a pneumonia. Albuterol as needed for shortness of breath. Increase in WBC 10.0 --> 13.4 this AM Continue to monitor vital signs and labwork (2) Community acquired pneumonia Code(s): J18.9 - Pneumonia, unspecified organism Status: Acute Plan: Patient presents to ED with shortness of breath on exertion and associated nonproductive cough. No past hospital visits the past 6 months. No recent exposure to tuberculosis, or prisons. Consolidation in right middle lobe appreciated on chest x-ray. Most likely pneumonia. White blood cell count on admission 10.0. With high neutrophil predominant at 75.9. Patient started on Rocephin and azithromycin (02/13 - ) Patient on 1 L nasal cannula O2. Wean as tolerated. Continue to monitor vital signs every 4. Start prednisone 50 mg daily due to underlying COPD Tylenol PRN fever Continue to monitor pt symptoms and infectious process (3) Right-sided chest pain Code(s): R07.9 - Chest pain, unspecified Status: Acute Plan: Patient complains of right-sided chest pain exacerbated with movement. Chest wall not tender to palpation. No parasternal tenderness. EKG shows prolonged NM interval. Possibly right atrial dilation (per medical team read). Chest x-ray negative. Possibly due to to excessive coughing. ACS workup negative Tylenol as needed for pain. Continue to monitor (4) Smoking Code(s): F17.200 - Nicotine dependence, unspecified, uncomplicated Status: Acute Plan: Currently smokes 1 PPD for 30 years Counseled on quitting (5) Nutrition, metabolism, and development symptoms Code(s): R63.8 - Other symptoms and signs concerning food and fluid intake Status: Acute Plan: Fluids: Tolerating PO Electrolytes:Monitor and replete as needed. Diet: Regular diet. (6) DVT prophylaxis Status: Acute Plan: SCDs only <Truman Reyes - 02/14/18 10:38> - Attending Attestation The exam, history, and the medical decision-making described in the above note were completed with the assistance of the resident physician. I reviewed and agree with the findings presented. I attest that I had a [id number] encounter with the patient on the same day, and personally performed and documented my assessment and findings in the medical record.Jacob DEWITT <Dominic Montero - 02/14/18 19:59> <Truman Reyes J - Last Filed: 02/14/18 10:38> (2) Community acquired pneumonia Qualifiers: Laterality: right Lung location: upper lobe of lung Qualified Code(s): J18.1 - Lobar pneumonia, unspecified organism <Dominic Montero - Last Filed: 02/14/18 19:59> (2) Community acquired pneumonia Qualifiers: Laterality: right Lung location: upper lobe of lung Qualified Code(s): J18.1 - Lobar pneumonia, unspecified organism <Truman Reyes J - Last Filed: 02/14/18 10:38> (2) Community acquired pneumonia Qualifiers: Laterality: right Lung location: upper lobe of lung Qualified Code(s): J18.1 - Lobar pneumonia, unspecified organism <Dominic Montero - Last Filed: 02/14/18 19:59> (2) Community acquired pneumonia Qualifiers: Laterality: right Lung location: upper lobe of lung Qualified Code(s): J18.1 - Lobar pneumonia, unspecified organism
--- NOTE | 2018-02-14 14:24 | ECG ---
Date Performed: 02/13/2018 Time Performed: 13:31:00 PTAGE: 58 years EKG: Sinus rhythm NONSPECIFIC T-WAVE ABNORMALITY ABNORMAL ECG NO PREVIOUS TRACING DOCTOR: Petrona Wick Interpretating Date/Time 02/14/2018 14:23:27
[2018-02-14] MEDS ORDERED: Azithromycin Inj 500 MG in Sodium Chlor 0.9% Inj 250 ML IV.SIG SCH (18:00)
[2018-02-15 08:12] LABS: Baso % (Auto) 0.2 % (0.0-2.0); Eos # (Auto) 0.1 th/mm3 (0.0-0.4); Eos % (Auto) 0.4 % (0.0-4.0); Hematocrit 44.5 % (39.0-51.0); Hemoglobin 14.9 gm/dL (13.0-17.0); Lymph # (Auto) 1.3 th/mm3 (1.0-4.8); Lymph % (Auto) 9.6 % (9.0-44.0); Mean Corpuscular HGB Conc 33.4 % (32.0-36.0); Mean Corpuscular Hemoglobin 29.9 pg (27.0-34.0); Mean Corpuscular Volume 89.5 fL (80.0-100.0); Mean Platelet Volume 7.1 fL (7.0-11.0); Mono # (Auto) 0.7 th/mm3 (0.0-0.9); Mono % (Auto) 5.1 % (0.0-8.0); Neut # (Auto) 11.2 th/mm3 (1.8-7.7); Neut % (Auto) 84.7 % (16.0-70.0); Platelet Count 279 th/mm3 (150-450); Red Blood Count 4.97 mil/mm3 (4.50-5.90); Red Cell Distribution Width 15.1 % (11.6-17.2); White Blood Count 13.3 th/mm3 (4.0-11.0)
[2018-02-15 08:36] LABS: Anion Gap 9 meq/L (5-15); Blood Urea Nitrogen 13 mg/dL (7-18); Calcium 8.9 mg/dL (8.5-10.1); Carbon Dioxide 25.5 meq/L (21.0-32.0); Chloride 104 meq/L (98-107); Glomerular Filtration Rate Greater Than 89 mL/min (>89); Glucose,Random 92 mg/dL (74-106); Potassium 3.9 meq/L (3.5-5.1); Sodium 138 meq/L (136-145)
--- NOTE | 2018-02-15 10:31 | P.PNFP ---
Subjective Interval history: Patient seen and examined bedside this morning. No acute events overnight. He has been eating and drinking without difficulty. He has been ambulating without difficulty. He feels that his shortness of breath has improved 50% since his admission. He feels comfortable going home. He denies any shortness of breath that is interrupted his sleep. No chest pain or dizziness. Results - Labs Result diagrams: 02/15/18 07:48 02/15/18 07:48 Abnormal lab results 02/15/18 Range/Units 07:48 WBC 13.3 H (4.0-11.0) th/mm3 Neut % (Auto) 84.7 H (16.0-70.0) % Neut # (Auto) 11.2 H (1.8-7.7) th/mm3 Short CBC 02/15/18 Range/Units 07:48 WBC 13.3 H (4.0-11.0) th/mm3 Hgb 14.9 (13.0-17.0) gm/dL Hct 44.5 (39.0-51.0) % Plt Count 279 (150-450) th/mm3 [facility] 02/15/18 07:48 Sodium 138 Potassium 3.9 Chloride 104 Carbon Dioxide 25.5 BUN 13 Creatinine 0.81 Calcium 8.9 Physical Exam Vital signs: Vital Signs 02/14/18 12:00 02/14/18 16:00 02/14/18 20:00 Temperature 97.2 F L 98.1 F 98.0 F Pulse Rate 89 82 92 H Respiratory Rate 20 20 17 Blood Pressure 116/74 112/67 102/58 L Pulse Oximetry 92 L 92 L 95 02/15/18 00:00 02/15/18 00:28 02/15/18 04:00 Temperature 98.3 F Pulse Rate 72 72 72 Respiratory Rate 16 Blood Pressure 101/56 L Pulse Oximetry 95 Intake & Output 02/14/18 02/15/18 02/15/18 18:59 06:59 18:59 Intake Total 830 / 830 Balance 830 / 830 Weight 65.9 kg Intake: IV 350 / 350 Azithromycin Inj 500 MG In NS 250 / 250 Inj 250 ML @ 250 mls/hr IV.SIG Q24H ANA MARIA Rx#:[id number] Rocephin Inj 1,000 MG In NS Inj 100 / 100 100 ML @ 200 mls/hr IV.SIG Q24H ANA MARIA Rx#:[id number] Oral 480 / 480 Other: # Voids 500 # Bowel Movements 1 - Constitutional no acute distress - Routine Respiratory Exam Present: CTA bilaterally. Absent: accessory muscle use, decreased breath sounds - Routine Cardiovascular Exam Present: RRR, S1, S2. Absent: murmur - Routine Abdominal Exam Present: soft, normoactive bowel sounds. Absent: tenderness - Routine Neurological Exam Present: alert, oriented X3, CN II-XII intact Assessment and Plan - Assessment (1) Sepsis Code(s): A41.9 - Sepsis, unspecified organism Status: Acute Plan: RR 17, heart rate 77, NAD VSS IV ceftriaxone 1 g every 24 hours, IV azithromycin 500 mg every 24 hours (02/13 - 02/15) WBC Stable 10-13 Urine Legionella antigen negative See plan below for pneumonia On admission: Patient was tachypneic: 27, tachycardic: 105, with identified source of infection on chest x-ray with possible consolidation is likely pneumonia. Meets sepsis criteria on admission. On Rocephin and azithromycin to cover gram positives, gram negatives and atypicals. Chest x-ray : Densely consolidated area of infiltrate involving the right upper lobe. This would be concerning for a pneumonia. Albuterol as needed for shortness of breath. (2) Community acquired pneumonia Code(s): J18.9 - Pneumonia, unspecified organism Status: Acute Plan: Patient started on Rocephin and azithromycin (02/13 - 02/15 ) On admission patient presents to ED with shortness of breath on exertion and associated nonproductive cough. No past hospital visits the past 6 months. No recent exposure to tuberculosis, or prisons. Consolidation in right middle lobe appreciated on chest x-ray. Most likely pneumonia. White blood cell count on admission 10.0. With high neutrophil predominant at 75.9. No blood cultures collected on admission before starting antibiotics, however no signs of sepsis at this time O2 95%, no supplemental oxygen needed on this admission We will discharge for total 7 day treatment for community-acquired pneumonia, likely on Augmentin and steroids 7 days (3) Right-sided chest pain Code(s): R07.9 - Chest pain, unspecified Status: Acute Plan: Asymptomatic today. Resolved. Chest pain yesterday was likely due to excessive coughing. Recommended outpatient treatment for COPD: Smoking cessation and Combivent inhaler. Chest wall not tender to palpation. No parasternal tenderness. EKG shows prolonged FL interval. Possibly right atrial dilation (per medical team read). Chest x-ray negative. ACS workup negative Tylenol as needed for pain. (4) Smoking Code(s): F17.200 - Nicotine dependence, unspecified, uncomplicated Status: Acute Plan: Currently smokes 1 PPD for 30 years Counseled on quitting No excessive weight loss or signs of malignancy at this time (5) Nutrition, metabolism, and development symptoms Code(s): R63.8 - Other symptoms and signs concerning food and fluid intake Status: Acute Plan: Fluids: Tolerating PO Electrolytes:Monitor and replete as needed. Diet: Regular diet. (6) DVT prophylaxis Status: Acute Plan: SCDs only - Assessment and Plan Discharge Planning: Plan for discharge today (2) Community acquired pneumonia Qualifiers: Laterality: right Lung location: upper lobe of lung Qualified Code(s): J18.1 - Lobar pneumonia, unspecified organism
--- NOTE | 2018-02-16 10:53 | P.DS ---
Date of admission: 02/13/18 17:27 Primary care physician: No Primary Care Physician Brief History from admission: 58 year old male presents to the ED due to SOB that started 2 and a 1/2 days ago with associated R sided chest pain. PT was going to the library and suddenly felt SOB after walking for a long period of time. This seemed to happened in the past with walking very long distances but he has noticed that the shortness of breath has become worse in the past two days. The shortness of breath is now present at rest. He also has associated right-sided chest pain. Describes the pain as an achy stabbing pain with no radiation. Nothing seems to make the chest pain and shortness of breath better. Patient also has an associated cough that started today, nonproductive. Denies any fever but had associated chills over the past two days. No exposure to sick contacts. He also has had associated diarrhea since last night x5. Denies any blood in his stool. Denies any recent falls or trauma. SH: Patient lives in a car. No exposure to tuberculosis but has a friend who had MRSA infection. No exposure to people in custodial, never been incarcerated. Sexually active with females, uses condoms. No Hx of STDs in the past. DS: Diagnosis - Discharge Diagnosis (1) Sepsis Status: Acute (2) Community acquired pneumonia Status: Acute (3) Right-sided chest pain Status: Acute (4) Nutrition, metabolism, and development symptoms Status: Acute (5) DVT prophylaxis Status: Acute DS: Medications - Discharge Medications Prescriptions: albuterol sulfate [Ventolin HFA] 2 puff INHALATION Q6H PRN #1 inhaler PRN Reason: Shortness Of Breath amoxicillin-pot clavulanate [Augmentin] 1 tab PO Q12H 5 Days #10 tab prednisone 50 mg PO DAILY 5 Days #5 tab tiotropium bromide [Spiriva Respimat] 2 puff INHALATION DAILY #1 inhaler DS: Summary Hospital Course: 58-year-old male unknown past medical history presented to the ED with shortness of breath and associated right-sided chest pain for 2 days. Septic on admission with tachypnea of 27, tachycardia of 105, 5 source of infection and x- ray likely pneumonia. White blood cell count was 10 with high neutrophil predominant at 75.9. ACS workup negative. Patient was started on Rocephin and azithromycin and placed on 1 L oxygen nasal cannula. He was also placed on prednisone 50 mg due to possibly underlying COPD. Patient improved clinically on 2 days of antibiotics. Vital signs remained stable. Patient was discharged home on albuterol sulfate every 6, Augmentin [id number] mg, prednisone 50 mg, Spiriva 1.25 mcg. To follow-up with his PCP in 1-2 weeks. - Time Spent with Patient Total time spent providing and/or coordinating discharge services: Less than 30 minutes - Quality: VTE Deep Vein Thrombosis/Pulmonary Embolism Present on Admission: No Exam Vital signs: Vital Signs 02/15/18 12:00 02/15/18 16:00 02/15/18 20:00 Temperature 97.8 F 97.9 F 97.7 F Pulse Rate 69 81 72 Respiratory Rate 18 18 17 Blood Pressure 107/64 110/66 132/78 Pulse Oximetry 94 L 95 95 Intake & Output 02/15/18 02/16/18 02/16/18 18:59 06:59 18:59 Intake Total 520 / 520 Output Total 1600 / 1600 Balance -1080 / -1080 Intake: Oral 520 / 520 Output: Urine 1600 / 1600 Other: Date of Last Bowel Movement 02/15/18 02/15/18 # Bowel Movements 1 Results Procedures completed during hospitalization: none - Impressions ITS Impressions Chest X-Ray 02/13/18 13:53 CONCLUSION: Densely consolidated area of infiltrate involving the right upper lobe. This would be concerning for a pneumonia. There are no previous examinations available for comparison. Discharge Plan - Discharge Disposition Patient Disposition: 01 Discharge Home - Discharge Condition Condition: Serious - Discharge Order Discharge Orders: Discharge Order (Routine); Ordered 02/15/18 Ordered By: Edwina Melton - Physicians Team Primary Care Provider: Primary Care Samantha Silva Attending Provider: Dominic Montero
[2018-02-17 17:58] VITALS: BP 132/78; PULSE 72; RESP 17; TEMP 97.7; O2SAT 95
== END 2018-02-15 18:00 | disposition home or self-care (01) ==
LOC: N04 11:17 → NEPC 11:17 → INTOOBSV 17:27 → NEDA 17:27 → N04 19:58
PROVIDERS: ADMIT Family Medicine; ATTEND Family Medicine
DX: J44.0 Chronic obstructive pulmonary disease with (acute) lower respiratory infection; Z59.0 Homelessness; I44.0 Atrioventricular block, first degree; R07.9 Chest pain, unspecified; F17.210 Nicotine dependence, cigarettes, uncomplicated; A41.9 Sepsis, unspecified organism; J18.1 Lobar pneumonia, unspecified organism